=== PATIENT | female | born 1940 | race Caucasian/White ===

== ENCOUNTER 2016-09-07 12:43 | Inpatient (IN) | payer MEDICARE ==
[2016-09-10] MEDS ORDERED: ASPIR 8181 MG PO (09:05)
[2016-09-10] MEDS ORDERED: B-121000 MCG PO (09:05)
[2016-09-10] MEDS ORDERED: CALCIUM 600 +1 EACH PO (09:07)
[2016-09-10] MEDS ORDERED: ANORO ELLIPTA1 EACH IH (09:07)
[2016-09-10] MEDS ORDERED: COREG6.25 MG PO (09:08)
[2016-09-10] MEDS ORDERED: SINEMET 25-1001 EACH PO (09:08)
[2016-09-10] MEDS ORDERED: DEPAKOTE250 MG PO (09:08)
[2016-09-10] MEDS ORDERED: CYMBALTA60 MG PO (09:09)
[2016-09-10] MEDS ORDERED: LOFIBRA160 MG PO (09:09)
[2016-09-10] MEDS ORDERED: ARICEPT5 MG PO (09:09)
[2016-09-10] MEDS ORDERED: ISOSORBIDE MONO30 MG PO (09:10)
[2016-09-10] MEDS ORDERED: SYNTHROID75 MCG PO (09:11)
[2016-09-10] MEDS ORDERED: SINGULAIR10 MG PO (09:11)
[2016-09-10] MEDS ORDERED: REQUIP0.5 MG PO (09:12)
[2016-09-10] MEDS ORDERED: ZANTAC150 MG PO (09:13)
[2016-09-10] MEDS ORDERED: DICYCLOMINE HCL20 MG PO (09:13)
[2016-09-10] MEDS ORDERED: NEURONTIN300 MG PO (09:13)
[2016-09-10] MEDS ORDERED: GLUCOPHAGE500 MG PO (09:14)
[2016-09-10] MEDS ORDERED: ULTRAM50 MG PO (09:15)
[2016-10-15] MEDS ORDERED: B-121000 MCG PO (09:31)
[2016-10-15] MEDS ORDERED: ASPIR 8181 MG PO (09:31)
[2016-10-15] MEDS ORDERED: ANORO ELLIPTA1 EACH IH (09:32)
[2016-10-15] MEDS ORDERED: FLUTICASONE PRO16 GM NS (09:32)
[2016-10-15] MEDS ORDERED: LASIX20 MG PO (09:32)
[2016-10-15] MEDS ORDERED: CALCIUM 600 +1 EACH PO (09:32)
[2016-10-15] MEDS ORDERED: ARICEPT10 MG PO (09:33)
[2016-10-15] MEDS ORDERED: SINEMET CR 50-1 EACH PO (09:33)
[2016-10-15] MEDS ORDERED: DEPAKOTE250 MG PO (09:33)
[2016-10-15] MEDS ORDERED: SYNTHROID75 MCG PO (09:34)
[2016-10-15] MEDS ORDERED: ISOSORBIDE MONO30 M1 PO (09:34)
[2016-10-15] MEDS ORDERED: CYMBALTA60 MG PO (09:34)
[2016-10-15] MEDS ORDERED: NEURONTIN300 MG PO (09:35)
[2016-10-15] MEDS ORDERED: ZANTAC150 MG PO (09:35)
[2016-10-15] MEDS ORDERED: REQUIP0.5 MG PO (09:35)
[2016-10-15] MEDS ORDERED: LANTUS100 UNIT/1 INJ (09:35)
[2016-10-15] MEDS ORDERED: SINGULAIR10 MG PO (09:35)
[2016-10-15] MEDS ORDERED: ULTRAM50 MG PO (09:36)
[2016-10-15] MEDS ORDERED: DICLO TOP (09:36)
[2016-10-15] MEDS ORDERED: VOLTAREN TOP (09:36)
[2016-10-15] MEDS ORDERED: VITAMIN D350000 UNIT PO (09:37)
[2016-10-15] MEDS ORDERED: ZOFRAN8 MG PO (09:37)
[2016-10-15] MEDS ORDERED: JANUVIA50 MG PO (09:38)
[2016-10-15] MEDS ORDERED: LIPITOR40 MG PO (09:38)
[2016-10-15] MEDS ORDERED: ACETAMINOPHEN325 MG PO (09:38)
== END 2016-09-09 14:15 | disposition home health service (06) | DRG 639 ==
LOC: ER 12:43 → MED 15:47
PROVIDERS: ADMIT Internal Medicine
DX: E11.649 Type 2 diabetes mellitus with hypoglycemia without coma (principal); R55 Syncope and collapse; I95.89 Other hypotension; G20 Parkinson's disease; E03.9 Hypothyroidism, unspecified; H91.90 Unspecified hearing loss, unspecified ear; I12.9 Hypertensive chronic kidney disease with stage 1 through stage 4 chronic kidney disease, or unspecified chronic kidney disease; E11.22 Type 2 diabetes mellitus with diabetic chronic kidney disease; N18.9 Chronic kidney disease, unspecified; M25.512 Pain in left shoulder; M12.812 Other specific arthropathies, not elsewhere classified, left shoulder; R47.9 Unspecified speech disturbances; E78.5 Hyperlipidemia, unspecified; I25.10 Atherosclerotic heart disease of native coronary artery without angina pectoris; F32.9 Major depressive disorder, single episode, unspecified; F03.90 Unspecified dementia, unspecified severity, without behavioral disturbance, psychotic disturbance, mood disturbance, and anxiety; M81.0 Age-related osteoporosis without current pathological fracture; K21.9 Gastro-esophageal reflux disease without esophagitis; G25.81 Restless legs syndrome; Z88.1 Allergy status to other antibiotic agents; Z88.0 Allergy status to penicillin; Z88.2 Allergy status to sulfonamides; Z88.8 Allergy status to other drugs, medicaments and biological substances; Z79.84 Long term (current) use of oral hypoglycemic drugs; Z79.82 Long term (current) use of aspirin; Z79.899 Other long term (current) drug therapy; Z83.3 Family history of diabetes mellitus; Z82.49 Family history of ischemic heart disease and other diseases of the circulatory system; Z84.89 Family history of other specified conditions; W19.XXXA Unspecified fall, initial encounter; Y93.9 Activity, unspecified; Y92.002 Bathroom of unspecified non-institutional (private) residence as the place of occurrence of the external cause
CPT/HCPCS: 36415; 97162-GP; 97166; J1650; J7050

== ENCOUNTER 2016-09-07 12:43 | Emergency (ER) | payer MEDICARE ==
[2016-09-10] MEDS ORDERED: B-121000 MCG PO (09:05)
[2016-09-10] MEDS ORDERED: ASPIR 8181 MG PO (09:05)
[2016-09-10] MEDS ORDERED: ANORO ELLIPTA1 EACH IH (09:07)
[2016-09-10] MEDS ORDERED: CALCIUM 600 +1 EACH PO (09:07)
[2016-09-10] MEDS ORDERED: SINEMET 25-1001 EACH PO (09:08)
[2016-09-10] MEDS ORDERED: COREG6.25 MG PO (09:08)
[2016-09-10] MEDS ORDERED: DEPAKOTE250 MG PO (09:08)
[2016-09-10] MEDS ORDERED: ARICEPT5 MG PO (09:09)
[2016-09-10] MEDS ORDERED: CYMBALTA60 MG PO (09:09)
[2016-09-10] MEDS ORDERED: LOFIBRA160 MG PO (09:09)
[2016-09-10] MEDS ORDERED: ISOSORBIDE MONO30 MG PO (09:10)
[2016-09-10] MEDS ORDERED: SYNTHROID75 MCG PO (09:11)
[2016-09-10] MEDS ORDERED: SINGULAIR10 MG PO (09:11)
[2016-09-10] MEDS ORDERED: REQUIP0.5 MG PO (09:12)
[2016-09-10] MEDS ORDERED: NEURONTIN300 MG PO (09:13)
[2016-09-10] MEDS ORDERED: DICYCLOMINE HCL20 MG PO (09:13)
[2016-09-10] MEDS ORDERED: ZANTAC150 MG PO (09:13)
[2016-09-10] MEDS ORDERED: GLUCOPHAGE500 MG PO (09:14)
[2016-09-10] MEDS ORDERED: ULTRAM50 MG PO (09:15)
[2016-10-15] MEDS ORDERED: B-121000 MCG PO (09:31)
[2016-10-15] MEDS ORDERED: ASPIR 8181 MG PO (09:31)
[2016-10-15] MEDS ORDERED: FLUTICASONE PRO16 GM NS (09:32)
[2016-10-15] MEDS ORDERED: LASIX20 MG PO (09:32)
[2016-10-15] MEDS ORDERED: ANORO ELLIPTA1 EACH IH (09:32)
[2016-10-15] MEDS ORDERED: CALCIUM 600 +1 EACH PO (09:32)
[2016-10-15] MEDS ORDERED: SINEMET CR 50-1 EACH PO (09:33)
[2016-10-15] MEDS ORDERED: DEPAKOTE250 MG PO (09:33)
[2016-10-15] MEDS ORDERED: ARICEPT10 MG PO (09:33)
[2016-10-15] MEDS ORDERED: ISOSORBIDE MONO30 M1 PO (09:34)
[2016-10-15] MEDS ORDERED: SYNTHROID75 MCG PO (09:34)
[2016-10-15] MEDS ORDERED: CYMBALTA60 MG PO (09:34)
[2016-10-15] MEDS ORDERED: SINGULAIR10 MG PO (09:35)
[2016-10-15] MEDS ORDERED: NEURONTIN300 MG PO (09:35)
[2016-10-15] MEDS ORDERED: LANTUS100 UNIT/1 INJ (09:35)
[2016-10-15] MEDS ORDERED: ZANTAC150 MG PO (09:35)
[2016-10-15] MEDS ORDERED: REQUIP0.5 MG PO (09:35)
[2016-10-15] MEDS ORDERED: VOLTAREN TOP (09:36)
[2016-10-15] MEDS ORDERED: DICLO TOP (09:36)
[2016-10-15] MEDS ORDERED: ULTRAM50 MG PO (09:36)
[2016-10-15] MEDS ORDERED: VITAMIN D350000 UNIT PO (09:37)
[2016-10-15] MEDS ORDERED: ZOFRAN8 MG PO (09:37)
[2016-10-15] MEDS ORDERED: ACETAMINOPHEN325 MG PO (09:38)
[2016-10-15] MEDS ORDERED: LIPITOR40 MG PO (09:38)
[2016-10-15] MEDS ORDERED: JANUVIA50 MG PO (09:38)
== END 2016-09-07 15:46 | disposition critical access hospital (66) ==
LOC: ER 12:43
DX: S09.90XA Unspecified injury of head, initial encounter (principal); R55 Syncope and collapse; E11.649 Type 2 diabetes mellitus with hypoglycemia without coma; M25.512 Pain in left shoulder; I25.10 Atherosclerotic heart disease of native coronary artery without angina pectoris; F03.90 Unspecified dementia, unspecified severity, without behavioral disturbance, psychotic disturbance, mood disturbance, and anxiety; K21.9 Gastro-esophageal reflux disease without esophagitis; N18.3 Chronic kidney disease, stage 3 (moderate); F32.9 Major depressive disorder, single episode, unspecified; J44.9 Chronic obstructive pulmonary disease, unspecified; G20 Parkinson's disease; I25.2 Old myocardial infarction; Z90.710 Acquired absence of both cervix and uterus; Z90.89 Acquired absence of other organs; Z79.899 Other long term (current) drug therapy; Z79.82 Long term (current) use of aspirin; Z88.8 Allergy status to other drugs, medicaments and biological substances; Z88.0 Allergy status to penicillin; Z88.1 Allergy status to other antibiotic agents; Z88.2 Allergy status to sulfonamides; W18.2XXA Fall in (into) shower or empty bathtub, initial encounter
CPT/HCPCS: 36415; 96374

== ENCOUNTER 2016-10-10 18:49 | Inpatient (IN) | payer MEDICARE ==
[~2016-10-10 18:49] MED LIST: ANORO ELLIPTA1 EACH IH; ARICEPT5 MG PO; ASPIR 8181 MG PO; B-121000 MCG PO; CALCIUM 600 +1 EACH PO; COREG6.25 MG PO; CYMBALTA60 MG PO; DEPAKOTE250 MG PO; DICYCLOMINE HCL20 MG PO; GLUCOPHAGE500 MG PO; ISOSORBIDE MONO30 MG PO; LOFIBRA160 MG PO; NEURONTIN300 MG PO; REQUIP0.5 MG PO; SINEMET 25-1001 EACH PO; SINGULAIR10 MG PO; SYNTHROID75 MCG PO; ULTRAM50 MG PO; ZANTAC150 MG PO
--- NOTE | 2016-10-12 10:13 | NUR ---
1010 pt. fearful agmd eve aware
[2016-10-15] MEDS ORDERED: B-121000 MCG PO (09:31)
[2016-10-15] MEDS ORDERED: ASPIR 8181 MG PO (09:31)
[2016-10-15] MEDS ORDERED: FLUTICASONE PRO16 GM NS (09:32)
[2016-10-15] MEDS ORDERED: CALCIUM 600 +1 EACH PO (09:32)
[2016-10-15] MEDS ORDERED: LASIX20 MG PO (09:32)
[2016-10-15] MEDS ORDERED: ANORO ELLIPTA1 EACH IH (09:32)
[2016-10-15] MEDS ORDERED: DEPAKOTE250 MG PO (09:33)
[2016-10-15] MEDS ORDERED: SINEMET CR 50-1 EACH PO (09:33)
[2016-10-15] MEDS ORDERED: ARICEPT10 MG PO (09:33)
[2016-10-15] MEDS ORDERED: ISOSORBIDE MONO30 M1 PO (09:34)
[2016-10-15] MEDS ORDERED: CYMBALTA60 MG PO (09:34)
[2016-10-15] MEDS ORDERED: SYNTHROID75 MCG PO (09:34)
[2016-10-15] MEDS ORDERED: NEURONTIN300 MG PO (09:35)
[2016-10-15] MEDS ORDERED: REQUIP0.5 MG PO (09:35)
[2016-10-15] MEDS ORDERED: ZANTAC150 MG PO (09:35)
[2016-10-15] MEDS ORDERED: SINGULAIR10 MG PO (09:35)
[2016-10-15] MEDS ORDERED: LANTUS100 UNIT/1 INJ (09:35)
[2016-10-15] MEDS ORDERED: DICLO TOP (09:36)
[2016-10-15] MEDS ORDERED: VOLTAREN TOP (09:36)
[2016-10-15] MEDS ORDERED: ULTRAM50 MG PO (09:36)
[2016-10-15] MEDS ORDERED: VITAMIN D350000 UNIT PO (09:37)
[2016-10-15] MEDS ORDERED: ZOFRAN8 MG PO (09:37)
[2016-10-15] MEDS ORDERED: ACETAMINOPHEN325 MG PO (09:38)
[2016-10-15] MEDS ORDERED: LIPITOR40 MG PO (09:38)
[2016-10-15] MEDS ORDERED: JANUVIA50 MG PO (09:38)
== END 2016-10-13 15:30 | disposition home health service (06) | DRG 683 ==
LOC: ER 18:49 → MED 10-11 00:16
PROVIDERS: ADMIT Internal Medicine
DX: N17.9 Acute kidney failure, unspecified (principal); M62.82 Rhabdomyolysis; E11.649 Type 2 diabetes mellitus with hypoglycemia without coma; I95.1 Orthostatic hypotension; J44.9 Chronic obstructive pulmonary disease, unspecified; G20 Parkinson's disease; F02.80 Dementia in other diseases classified elsewhere, unspecified severity, without behavioral disturbance, psychotic disturbance, mood disturbance, and anxiety; I25.10 Atherosclerotic heart disease of native coronary artery without angina pectoris; Z95.5 Presence of coronary angioplasty implant and graft; H91.90 Unspecified hearing loss, unspecified ear; H54.0 Blindness, both eyes; M25.512 Pain in left shoulder; E78.5 Hyperlipidemia, unspecified; F31.9 Bipolar disorder, unspecified; M81.0 Age-related osteoporosis without current pathological fracture; K21.9 Gastro-esophageal reflux disease without esophagitis; G25.81 Restless legs syndrome; E03.9 Hypothyroidism, unspecified; J30.9 Allergic rhinitis, unspecified; I11.0 Hypertensive heart disease with heart failure; I50.9 Heart failure, unspecified; Z79.82 Long term (current) use of aspirin; Z79.4 Long term (current) use of insulin; Z79.899 Other long term (current) drug therapy; Z88.1 Allergy status to other antibiotic agents; Z88.0 Allergy status to penicillin; Z88.2 Allergy status to sulfonamides; Z88.8 Allergy status to other drugs, medicaments and biological substances; Z90.710 Acquired absence of both cervix and uterus; Z91.81 History of falling
CPT/HCPCS: 36415; 73502-LT; 97161-GP; J1644

== ENCOUNTER 2016-10-10 18:49 | Emergency (ER) | payer MEDICARE ==
[2016-10-15] MEDS ORDERED: ASPIR 8181 MG PO (09:31)
[2016-10-15] MEDS ORDERED: B-121000 MCG PO (09:31)
[2016-10-15] MEDS ORDERED: CALCIUM 600 +1 EACH PO (09:32)
[2016-10-15] MEDS ORDERED: LASIX20 MG PO (09:32)
[2016-10-15] MEDS ORDERED: ANORO ELLIPTA1 EACH IH (09:32)
[2016-10-15] MEDS ORDERED: FLUTICASONE PRO16 GM NS (09:32)
[2016-10-15] MEDS ORDERED: SINEMET CR 50-1 EACH PO (09:33)
[2016-10-15] MEDS ORDERED: DEPAKOTE250 MG PO (09:33)
[2016-10-15] MEDS ORDERED: ARICEPT10 MG PO (09:33)
[2016-10-15] MEDS ORDERED: ISOSORBIDE MONO30 M1 PO (09:34)
[2016-10-15] MEDS ORDERED: SYNTHROID75 MCG PO (09:34)
[2016-10-15] MEDS ORDERED: CYMBALTA60 MG PO (09:34)
[2016-10-15] MEDS ORDERED: LANTUS100 UNIT/1 INJ (09:35)
[2016-10-15] MEDS ORDERED: REQUIP0.5 MG PO (09:35)
[2016-10-15] MEDS ORDERED: NEURONTIN300 MG PO (09:35)
[2016-10-15] MEDS ORDERED: SINGULAIR10 MG PO (09:35)
[2016-10-15] MEDS ORDERED: ZANTAC150 MG PO (09:35)
[2016-10-15] MEDS ORDERED: DICLO TOP (09:36)
[2016-10-15] MEDS ORDERED: VOLTAREN TOP (09:36)
[2016-10-15] MEDS ORDERED: ULTRAM50 MG PO (09:36)
[2016-10-15] MEDS ORDERED: VITAMIN D350000 UNIT PO (09:37)
[2016-10-15] MEDS ORDERED: ZOFRAN8 MG PO (09:37)
[2016-10-15] MEDS ORDERED: ACETAMINOPHEN325 MG PO (09:38)
[2016-10-15] MEDS ORDERED: JANUVIA50 MG PO (09:38)
[2016-10-15] MEDS ORDERED: LIPITOR40 MG PO (09:38)
== END 2016-10-11 00:16 | disposition critical access hospital (66) ==
LOC: ER 18:49
DX: I95.9 Hypotension, unspecified (principal); I11.0 Hypertensive heart disease with heart failure; I50.9 Heart failure, unspecified; J44.9 Chronic obstructive pulmonary disease, unspecified; I25.2 Old myocardial infarction; E11.9 Type 2 diabetes mellitus without complications; Z95.5 Presence of coronary angioplasty implant and graft; Z90.710 Acquired absence of both cervix and uterus; Z79.82 Long term (current) use of aspirin; Z79.4 Long term (current) use of insulin; Z79.899 Other long term (current) drug therapy; Z88.0 Allergy status to penicillin; Z88.1 Allergy status to other antibiotic agents; Z88.2 Allergy status to sulfonamides; Z88.8 Allergy status to other drugs, medicaments and biological substances
CPT/HCPCS: 36415; 51701; 73502-LT; 96360; 96361